=== PATIENT | male | born 1990 | race Caucasian/White ===

== ENCOUNTER 2017-10-30 16:13 | Emergency (ER) | payer BC, OTHER ==
[2017-10-30 16:57] VITALS: BP 182/111
[2017-10-30] MEDS ORDERED: Ketorolac INJ* 60 MG/2 ML VIAL IM ONE (17:17)
[2017-10-30] MEDS ORDERED: Ibuprofen TAB* 400 MG PO ONE (17:21)
[2017-10-30] MEDS ORDERED: Cyclobenzaprine TAB* 10 MG PO ONE (17:21)
--- NOTE | 2017-10-30 17:33 | UC ---
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 Pt reports pain that radiates across low back. - History of Current Complaint Chief Complaint: UCBackPain Stated Complaint: BACK PAIN-WC Time Seen by Provider: 10/30/17 16:53 Hx Obtained From: Patient Onset/Duration: Gradual Onset, Lasting Days, Still Present, Worse Since - onset Timing: Constant Severity Initially: Mild Severity Currently: Moderate Back Pain: Is Discrete @ - low back Character: Dull, Aching, Spasmodic, Stiffness Aggravating Factor(s): Movement, Lifting, Bending, Walking Alleviating Factor(s): Position Associated Signs And Symptoms: Positive: Negative Related History: Occupational Injury - Risk Factors AAA Risk Factors: Negative TAD Risk Factors: Negative Cauda Equina Risk Factors: Negative Epidural Abscess Risk Factors: Negative - Allergies/Home Medications Allergies/Adverse Reactions: Allergies Allergy/AdvReac Type Severity Reaction Status Date / Time No Known Allergies Allergy Verified 10/30/17 16:57 Home Medications: Home Medications Acetaminophen [Acetaminophen Extra Stren] 1,500 mg PO Q4H PRN 10/30/17 [History Confirmed 10/30/17] Men's One A Day Vitamin 1 tab PO DAILY 10/30/17 [History] PMH/Surg Hx/FS Hx/Imm Hx Previously Healthy: Yes - Surgical History Surgical History: Yes Surgery Procedure, Year, and Place: ear tubes as toddler - Family History Known Family History: Positive: Cardiac Disease - Social History Occupation: Employed Full-time Lives: With Family Alcohol Use: Occasionally Substance Use Type: None Smoking Status (MU): Former Smoker Have You Smoked in the Last Year: No Review of Systems Constitutional: Negative Skin: Negative Eyes: Negative ENT: Negative Respiratory: Negative Cardiovascular: Negative Gastrointestinal: Negative Genitourinary: Negative Motor: Decreased ROM - low back Neurovascular: Negative Musculoskeletal: Arthralgia, Decreased ROM - low back, Myalgia Neurological: Negative Psychological: Negative Is Patient Immunocompromised?: No All Other Systems Reviewed And Are Negative: Yes Physical Exam Triage Information Reviewed: Yes Appearance: Pain Distress, Obese Vital Signs: Initial Vital Signs Temp 97.5 F 10/30/17 16:48 Pulse 70 10/30/17 16:48 Resp 20 10/30/17 16:48 BP 182/111 10/30/17 16:48 Pulse Ox 100 10/30/17 16:48 Vital Signs Reviewed: Yes Eye Exam: Normal ENT Exam: Normal Dental Exam: Normal Neck exam: Normal Respiratory Exam: Normal Cardiovascular Exam: Normal Musculoskeletal: Positive: Strength Limited @ - low back, ROM Limited @ - low back, Other: - low back lordosis curve flattened. Neurological Exam: Normal Psychological Exam: Normal Skin Exam: Normal Back Pain Course/Dx - Course Course Of Treatment: I spoke to the pt about his elevated blood pressure and the need to follow up with his PCP regarding this. Pt stated that his BP is typically much lower but that he is in a great deal of pain at timie of exam. I discussed with th ept the need to f/u with PCP and to back specialist he was refereed too as well as with PT as referred. - Differential Dx/Diagnosis Differential Diagnosis/HQI/PQRI: Cauda Equina Syndrome, Herniated Disc, Strain, Sprain Provider Diagnoses: low back strain. low back spasm. elevated blood pressure. Discharge - Discharge Plan Condition: Stable Disposition: HOME Prescriptions: Cyclobenzaprine TAB* [Flexeril 10 MG TAB*] 10 mg PO Q8H PRN #30 tab PRN Reason: Pain Ibuprofen TAB* [Motrin TAB* 800 MG] 800 mg PO Q8H PRN #30 tab PRN Reason: Pain Patient Education Materials: Acute Low Back Pain (ED), Hypertension (ED), Muscle Spasm (ED), Lower Back Exercises (ED) Referrals: No Primary Care Phys,NOPCP [Primary Care Provider] - Khang SHETTY,Yasmany Valle [Medical Doctor] - If Needed Additional Instructions: Please follow up with your PCP as needed. We have provided a referral to a back and realty specialist. Please follow up with them as needed. Please note that your blood pressure was elevated at today's visit. Please follow up with your PCP regarding this finding.
== END 2017-10-30 17:48 | disposition home or self-care (01) ==
LOC: UCCORT 16:13
DX: M54.5 Low back pain (principal); M62.830 Muscle spasm of back; X50.3XXA Overexertion from repetitive movements, initial encounter; X50.0XXA Overexertion from strenuous movement or load, initial encounter; Y93.89 Activity, other specified; Y92.89 Other specified places as the place of occurrence of the external cause; Y99.0 Civilian activity done for income or pay; R03.0 Elevated blood-pressure reading, without diagnosis of hypertension; Z87.891 Personal history of nicotine dependence
CPT/HCPCS: 99202; A9270-GY; G0463

== ENCOUNTER 2020-01-20 15:03 | Emergency (ER) | payer BC ==
[2020-01-20 17:21] VITALS: BP 158/110
[2020-01-20] MEDS ORDERED: Albuterol HFA INHALER* 8 gm MDI INH ONE (17:36)
--- NOTE | 2020-01-20 17:37 | UC ---
Respiratory Complaint HPI - HPI Summary HPI Summary: 29 yo male with cough x 4 days initially feverish wheezing today had some flecks of blood in his sputum no cp or sob no calf pain - History of Current Complaint Chief Complaint: UCRespiratory Stated Complaint: COUGH Time Seen by Provider: 01/20/20 17:31 Hx Obtained From: Patient Onset/Duration: Gradual Onset, Lasting Days Timing: Constant Severity Initially: Moderate Severity Currently: Mild Pain Intensity: 0 Pain Scale Used: 0-10 Numeric Character: Cough: Productive Aggravating Factors: Nothing Alleviating Factors: Nothing Associated Signs And Symptoms: Positive: Wheezing, Hemoptysis - x1, scant - Allergies/Home Medications Allergies/Adverse Reactions: Allergies Allergy/AdvReac Type Severity Reaction Status Date / Time No Known Allergies Allergy Verified 01/20/20 17:18 Home Medications: Home Medications Men's One A Day Vitamin 1 tab PO DAILY 10/30/17 [History Confirmed 01/20/20] Amoxicillin PO (*) [Amoxicillin 875 MG (*)] 875 mg PO BID #14 tab 01/20/20 [Rx] D-Methorphan/PE/Acetaminophen [Daytime Cold-Flu Liquid] 1 dose PO ONCE 01/20/20 [History Confirmed 01/20/20] Hydrochlorothiazide TAB* [Hydrodiuril TAB*] 25 mg PO DAILY 01/20/20 [History Confirmed 01/20/20] amLODIPine TAB* [Norvasc 5 mg TAB*] 5 mg PO DAILY 01/20/20 [History Confirmed ] metFORMIN* [Glucophage 500 MG TAB *] 500 mg PO BID 01/20/20 [History Confirmed 01/20/20] predniSONE 20 mg TAB [Deltasone 20 MG TAB*] 40 mg PO DAILY #8 tab 01/20/20 [Rx] PMH/Surg Hx/FS Hx/Imm Hx Previously Healthy: Yes Endocrine History: Diabetes Cardiovascular History: Hypertension - Surgical History Surgical History: Yes Surgery Procedure, Year, and Place: ear tubes as toddler - Family History Known Family History: Positive: Cardiac Disease - Social History Alcohol Use: Rare Substance Use Type: None Smoking Status (MU): Never Smoked Tobacco Have You Smoked in the Last Year: No Review of Systems All Other Systems Reviewed And Are Negative: Yes Constitutional: Positive: Fever - initially Skin: Positive: Negative Eyes: Positive: Negative ENT: Positive: Nasal Discharge Respiratory: Positive: Cough Cardiovascular: Positive: Negative Gastrointestinal: Positive: Negative Genitourinary: Positive: Negative Motor: Positive: Negative Neurovascular: Positive: Negative Musculoskeletal: Positive: Negative Neurological/Mental Status: Positive: Negative Psychological: Positive: Negative Physical Exam Triage Information Reviewed: Yes Appearance: Well-Appearing, No Pain Distress, Well-Nourished Vital Signs: Initial Vital Signs Temp 97.9 F 01/20/20 17:17 Pulse 86 01/20/20 17:17 Resp 22 01/20/20 17:17 BP 158/110 01/20/20 17:17 Pulse Ox 98 01/20/20 17:17 Vital Signs Reviewed: Yes Eyes: Positive: Conjunctiva Clear ENT: Positive: Hearing grossly normal, Nasal congestion, TMs normal, Uvula midline. Negative: Nasal drainage, Tonsillar swelling, Tonsillar exudate, Trismus, Muffled voice, Hoarse voice, Dental tenderness, Sinus tenderness Dental Exam: Normal Neck: Positive: Supple, Nontender, No Lymphadenopathy Respiratory: Positive: No respiratory distress, No accessory muscle use, Wheezing Cardiovascular: Positive: RRR, No Murmur. Negative: Tachycardia Musculoskeletal: Positive: ROM Intact, No Edema Neurological: Positive: Alert Psychological Exam: Normal Skin Exam: Normal Respiratory Course/Dx - Course Course Of Treatment: patient refuses CXR states he will return for new or worsening symtpoms - Differential Dx/Diagnosis Provider Diagnosis: Acute bronchitis with coexisting condition, need prophylactic therapy Discharge ED - Sign-Out/Discharge Documenting (check all that apply): Patient Departure All imaging exams completed and their final reports reviewed: No Studies - Discharge Plan Condition: Stable Disposition: HOME Prescriptions: Amoxicillin PO (*) [Amoxicillin 875 MG (*)] 875 mg PO BID #14 tab predniSONE 20 mg TAB [Deltasone 20 MG TAB*] 40 mg PO DAILY #8 tab Patient Education Materials: Acute Bronchitis (ED), How to Use a Metered-Dose Inhaler and a Spacer (ED) Referrals: Julissa Funes PA [Primary Care Provider] - 4 Days (if not better) Additional Instructions: If symptoms worsen or fail to improve please return - Billing Disposition and Condition Condition: STABLE Disposition: Home
== END 2020-01-20 17:55 | disposition home or self-care (01) ==
LOC: UCCORT 15:03
DX: J20.9 Acute bronchitis, unspecified (principal); E11.9 Type 2 diabetes mellitus without complications; I10 Essential (primary) hypertension; Z79.84 Long term (current) use of oral hypoglycemic drugs; Z79.899 Other long term (current) drug therapy
CPT/HCPCS: 99213; A9270-GY; G0463